=== PATIENT | female | born 1995 | race Caucasian/White ===

== ENCOUNTER 2017-10-18 12:51 | Day surgery (SDC) | payer OTHER ==
[~2017-10-18 12:51] MED LIST: FENTAnyl 50 MCG/ML VIAL
[2017-10-18] MEDS ORDERED: MIDAZOLAM 1 MG/ML 2 ML INJ (15:37)
[2017-10-18] MEDS ORDERED: SUCCINYLCHOLINE CHLORIDE 100 MG/5 ML SYG IV (15:37)
[2017-10-18] MEDS ORDERED: PROPOFOL 20 ML (15:37)
[2017-10-18] MEDS ORDERED: METOCLOPRAMIDE 10 MG INJ (15:37)
[2017-10-18] MEDS ORDERED: DEXAMETHASONE 4 MG/ML 1 ML INJ (15:37)
[2017-10-18] MEDS ORDERED: HYDROCODONE/APAP (5/325) TAB PO (16:30)
[2017-10-18] MEDS ORDERED: ONDANSETRON 4 MG INJ IV (16:30)
[2017-10-18] MEDS ORDERED: HYDROmorphONE (0.2 MG/ML) 10ML SYG IV ×3 (16:30)
[2017-10-18] MEDS ORDERED: OXYCODONE/ACETAMINOPHEN (5/325) TAB PO ×2 (16:30)
== END 2017-10-18 17:58 | disposition home or self-care (01) ==
LOC: SDS 12:51
DX: J35.01 Chronic tonsillitis (principal); E66.01 Morbid (severe) obesity due to excess calories
CPT/HCPCS: 42826; 84703; 88304